=== PATIENT | female | born 1960 | race Caucasian/White ===

== ENCOUNTER 2017-03-09 01:16 | Emergency (ER) | payer MEDICAID ==
[~2017-03-09] VITALS: Ht 167.6 cm; Wt 63.5 kg
[2017-03-09 01:16] VITALS: BP_SYST 110
[2017-03-09] MEDS ORDERED: KETOROLAC TROMETHAMINE 60 MG/2 ML VIAL IM ONE (02:00)
[2017-03-09 02:18] VITALS: BP_SYST 110
== END 2017-03-09 02:18 | disposition home or self-care (01) ==
LOC: SED 01:16
DX: M79.621 Pain in right upper arm (principal)
CPT/HCPCS: 96374; 99284; J1885

== ENCOUNTER 2017-03-26 13:46 | Emergency (ER) | payer MEDICAID ==
[~2017-03-26] VITALS: Ht 165.1 cm; Wt 63.5 kg
[2017-03-26 13:46] VITALS: BP_SYST 141
--- NOTE | 2017-03-26 13:46 | NUR ---
BROUGHT BACK TO BED #5 AND TRIAGED. REPORT GIVEN TO JAMIN
--- NOTE | 2017-03-26 13:50 | NUR ---
ER at bedside examining patient.
--- NOTE | 2017-03-26 13:55 | NUR ---
Pt presents to Ed c/o/ back s/p mech fall w/o syncope. Pt ambulates w/steady gait w/o assist.
[2017-03-26] MEDS ORDERED: KETOROLAC TROMETHAMINE 60 MG/2 ML VIAL IM ONE (14:00)
--- NOTE | 2017-03-26 14:05 | NUR ---
Patient transported to radiology via wheelchair, accompanied by rad staff.
--- NOTE | 2017-03-26 14:10 | NUR ---
Pt returned from rad dept. pt tolerated well. Pt medicated for pain.
--- NOTE | 2017-03-26 14:15 | NUR ---
Pt medicated tolerated well.
[2017-03-26 14:37] VITALS: BP_SYST 141
--- NOTE | 2017-03-26 14:37 | NUR ---
Patient given written and verbal discharge instructions and verbalizes understanding. ER MD discussed with patient the results and treatment provided. Patient in stable condition. ID arm band removed. Rx of motrin given. Patient educated on pain management and to follow up with PMD. Pain Scale 3. Opportunity for questions provided and answered.
== END 2017-03-26 14:37 | disposition home or self-care (01) ==
LOC: SED 13:46
DX: S39.012A Strain of muscle, fascia and tendon of lower back, initial encounter (principal); F17.200 Nicotine dependence, unspecified, uncomplicated; Z71.6 Tobacco abuse counseling; Z88.6 Allergy status to analgesic agent; Z88.5 Allergy status to narcotic agent; W01.0XXA Fall on same level from slipping, tripping and stumbling without subsequent striking against object, initial encounter; Y93.89 Activity, other specified; Y92.832 Beach as the place of occurrence of the external cause; Y99.8 Other external cause status
CPT/HCPCS: 72100; 96372; 99284; J1885

== ENCOUNTER 2017-06-02 13:53 | Emergency (ER) | payer MEDICAID ==
[~2017-06-02] VITALS: Ht 167.6 cm; Wt 68.0 kg
[2017-06-02 14:35] VITALS: BP_SYST 107
== END 2017-06-02 15:58 | disposition left against medical advice (07) ==
LOC: SED 13:53
DX: T14.8 Other injury of unspecified body region (principal); Z53.21 Procedure and treatment not carried out due to patient leaving prior to being seen by health care provider; W57.XXXA Bitten or stung by nonvenomous insect and other nonvenomous arthropods, initial encounter; Y93.89 Activity, other specified; Y92.69 Other specified industrial and construction area as the place of occurrence of the external cause; Y99.8 Other external cause status

== ENCOUNTER 2017-06-02 23:08 | Emergency (ER) | payer MEDICAID ==
[~2017-06-02] VITALS: Ht 167.6 cm; Wt 68.0 kg
[2017-06-02 23:18] VITALS: BP_SYST 114
[2017-06-02] MEDS ORDERED: cefTRIAXone 1 GM in LIDOCAINE 1%, 20 ML MDV 2.1 ML IM ONE (23:30)
[2017-06-03 00:25] VITALS: BP_SYST 114
== END 2017-06-03 00:25 | disposition home or self-care (01) ==
LOC: SED 23:08
DX: L03.221 Cellulitis of neck (principal); H60.11 Cellulitis of right external ear; L03.114 Cellulitis of left upper limb; Z88.5 Allergy status to narcotic agent; Z88.6 Allergy status to analgesic agent
CPT/HCPCS: 96372; 99283; J0696; J2001

== ENCOUNTER 2018-01-02 01:03 | Emergency (ER) | payer MEDICAID ==
[~2018-01-02] VITALS: Ht 167.6 cm; Wt 63.5 kg
[2018-01-02 01:10] VITALS: BP_SYST 128
[2018-01-02] MEDS ORDERED: PHENAZOPYRIDINE HCL 100 MG TABLET PO ONE (01:45)
[2018-01-02] MEDS ORDERED: NITROFURANTOIN MONOHYD/M-CRYST 100 MG CAPSULE PO ONE (01:45)
[2018-01-02 02:15] VITALS: BP_SYST 119
[2018-01-02 02:15] LABS: BILIRUBIN,URINE NEGATIVE (NEGATIVE); BLOOD, URINE 2+ (NEGATIVE); CLARITY/URINE SL CLOUDY (CLEAR); COLOR,URINE YELLOW (YELLOW); GLUCOSE,URINE NEGATIVE (NEGATIVE); KETONES,URINE NEGATIVE (NEGATIVE); LEUKOCYTE ESTERASE ,URINE 1+ (NEGATIVE); NITRITE, URINE NEGATIVE (NEGATIVE); PROTEIN URINE NEGATIVE (NEGATIVE); UROBILINOGEN,URINE 0.2 (0.2-1.0)
[2018-01-02 02:22] LABS: WBC,URINE 50-80 /HPF (0-3)
[2018-01-02 02:24] LABS: BACTERIA,URINE MODERATE /HPF (None Seen); MUCUS,URINE None Seen /LPF (None Seen)
== END 2018-01-02 02:15 | disposition home or self-care (01) ==
LOC: SED 01:03
DX: N39.0 Urinary tract infection, site not specified (principal); R03.0 Elevated blood-pressure reading, without diagnosis of hypertension; F17.210 Nicotine dependence, cigarettes, uncomplicated; Z90.710 Acquired absence of both cervix and uterus; Z88.0 Allergy status to penicillin; Z88.5 Allergy status to narcotic agent; Z88.6 Allergy status to analgesic agent
CPT/HCPCS: 81000-TC; 99283

== ENCOUNTER 2018-06-18 14:03 | Emergency (ER) | payer MEDICAID ==
[~2018-06-18] VITALS: Ht 167.6 cm; Wt 61.2 kg
[2018-06-18 14:08] VITALS: BP_SYST 125
[2018-06-18 14:29] LABS: BILIRUBIN,URINE NEGATIVE (NEGATIVE); BLOOD, URINE 2+ (NEGATIVE); CLARITY/URINE CLEAR (CLEAR); COLOR,URINE YELLOW (YELLOW); GLUCOSE,URINE NEGATIVE (NEGATIVE); KETONES,URINE NEGATIVE (NEGATIVE); LEUKOCYTE ESTERASE ,URINE 1+ (NEGATIVE); NITRITE, URINE NEGATIVE (NEGATIVE); PH,URINE 5.5 (5.0-8.0); PROTEIN URINE NEGATIVE (NEGATIVE); UROBILINOGEN,URINE 0.2 (0.2-1.0)
[2018-06-18] MEDS ORDERED: NITROFURANTOIN MONOHYD/M-CRYST 100 MG CAPSULE PO ONE (14:30)
[2018-06-18] MEDS ORDERED: PHENAZOPYRIDINE HCL 100 MG TABLET PO ONE (14:30)
[2018-06-18 14:41] LABS: BACTERIA,URINE RARE /HPF (None Seen); MUCUS,URINE None Seen /LPF (None Seen); YEAST,URINE None Seen /HPF (None Seen)
[2018-06-18 15:03] VITALS: BP_SYST 125
== END 2018-06-18 15:01 | disposition home or self-care (01) ==
LOC: SED 14:03
DX: N39.0 Urinary tract infection, site not specified (principal); F17.200 Nicotine dependence, unspecified, uncomplicated; Z88.0 Allergy status to penicillin; Z88.6 Allergy status to analgesic agent; Z88.5 Allergy status to narcotic agent
CPT/HCPCS: 81000-TC; 87086; 99284

== ENCOUNTER 2018-06-25 17:11 | Emergency (ER) | payer MEDICAID ==
[~2018-06-25] VITALS: Ht 167.6 cm; Wt 65.8 kg
[2018-06-25 17:11] VITALS: BP_SYST 151
--- NOTE | 2018-06-25 17:11 | NUR ---
BROUGHT BACK TO BED #4 AND TRIAGED. REPORT GIVEN TO MY
--- NOTE | 2018-06-25 17:20 | NUR ---
57year old female presented to ED with generalized weakness and dehydration; reports being seen 1 week ago here at [facility] for UTI; STATES UTI STILL present and currently TAKING MACROBID +DYSURIA; denies blood in urine; history of frequent UTI's approximately 4-5x per year; awaiting for MD assess/vaishali
--- NOTE | 2018-06-25 17:25 | NUR ---
pt provided urine sample and sent to lab
--- NOTE | 2018-06-25 17:40 | NUR ---
Dr. Cruz at bedside for assess/eval
[2018-06-25] MEDS ORDERED: NS 500 ML IV ONE (17:45)
[2018-06-25 17:57] LABS: BILIRUBIN,URINE NEGATIVE (NEGATIVE); BLOOD, URINE TRACE (NEGATIVE); CLARITY/URINE CLEAR (CLEAR); COLOR,URINE YELLOW (YELLOW); GLUCOSE,URINE NEGATIVE (NEGATIVE); KETONES,URINE NEGATIVE (NEGATIVE); LEUKOCYTE ESTERASE ,URINE NEGATIVE (NEGATIVE); NITRITE, URINE NEGATIVE (NEGATIVE); PH,URINE 7.5 (5.0-8.0); PROTEIN URINE NEGATIVE (NEGATIVE)
[2018-06-25 18:01] LABS: BACTERIA,URINE FEW /HPF (None Seen); WBC,URINE 0-3 /HPF (0-3)
[2018-06-25 18:17] LABS: BASOPHILS # (AUTO) 0.3 K/uL (0.0-0.2); BASOPHILS % (AUTO) 2.8 % (0.0-2.0); EOSINOPHILS # (AUTO) 0.9 K/uL (0.0-0.4); EOSINOPHILS % (AUTO) 8.4 % (0.0-4.0); HEMATOCRIT 37.6 % (36-48); HEMOGLOBIN 13.2 g/dL (12.0-16.0); LYMPHOCYTES # (AUTO) 3.4 K/uL (1.0-5.5); LYMPHOCYTES % (AUTO) 30.5 % (20.5-51.5); MEAN CORPUSCULAR HEMOGLOBIN 29 pg (27-31); MEAN CORPUSCULAR HGB CONC 35 % (32-36); MEAN CORPUSCULAR VOLUME 83 fL (79.0-98.0); MONOCYTES # (AUTO) 0.5 K/uL (0.0-1.0); MONOCYTES % (AUTO) 4.7 % (1.7-9.3); NEUTROPHILS % (AUTO) 53.6 % (40.0-70.0); PLATELET COUNT (AUTO) 246 K/uL (130-430); RED BLOOD CELL COUNT(AUTO) 4.51 MIL/uL (4.2-6.2); WHITE BLOOD COUNT (AUTO) 11.1 K/uL (4.8-10.8)
[2018-06-25 18:56] VITALS: BP_SYST 127
--- NOTE | 2018-06-25 18:56 | NUR ---
Patient given written and verbal discharge instructions and verbalizes understanding. ER MD discussed with patient the results and treatment provided. Patient in stable condition. ID arm band removed. IV catheter removed intact and dressing applied, no active bleeding. Rx of Cipro and Pyridium given. Patient educated on pain management and to follow up with PMD within 2-3days. Pain Scale 2/10; tolerable and requires no further intervention at this time; pt and MD agrees to discharge home. Opportunity for questions provided and answered. Medication side effect fact sheet provided.
== END 2018-06-25 18:56 | disposition home or self-care (01) ==
LOC: SED 17:11
DX: N39.0 Urinary tract infection, site not specified (principal); Z88.6 Allergy status to analgesic agent; Z88.5 Allergy status to narcotic agent; Z88.0 Allergy status to penicillin
CPT/HCPCS: 36415; 81000; 85025; 96360; 99284; J7040

== ENCOUNTER 2020-05-16 17:34 | Emergency (ER) | payer MEDICAID ==
[~2020-05-16] VITALS: Ht 167.6 cm; Wt 68.0 kg
[2020-05-16 17:40] VITALS: BP_SYST 124
[2020-05-16 18:30] VITALS: BP_SYST 124
== END 2020-05-16 18:30 | disposition home or self-care (01) ==
LOC: SED 17:34
DX: M77.9 Enthesopathy, unspecified (principal); Z88.5 Allergy status to narcotic agent; Z88.6 Allergy status to analgesic agent; Z88.0 Allergy status to penicillin
CPT/HCPCS: 99283